=== PATIENT | male | born 1945 | race Caucasian/White ===

== ENCOUNTER 2017-07-16 19:24 | Emergency (ER) | payer OTHER ==
[~2017-07-16] VITALS: Ht 185.4 cm; Wt 95.0 kg
[2017-07-16] MEDS ORDERED: XARELTO20 MG PO (20:36)
[2017-07-16 20:54] LABS: HEMATOCRIT 45.7 % (38.0-50.0); MCH 30.6 PG (29.0-34.0); MCHC 33.9 G/DL (30.0-36.0); MCV 90.3 FL (86-99); MEAN PLAT.VOLUME 9.4 uM^3 (9.0-12.4); PLATELET COUNT 205 K/uL (156-360); RBC DIS.WIDTH-CV 13.1 % (11.8-14.6); RBC DIS.WIDTH-SD 42.8 % (39-53); RED BLOOD COUNT 5.06 M/uL (4.00-5.50); WHITE BLOOD COUNT 7.4 K/uL (4.1-10.2)
[2017-07-16 21:03] LABS: CHLORIDE 108 mEq/L (99-109); POTASSIUM 4.4 mEq/L (3.7-5.4); SODIUM 142 mEq/L (136-147)
[2017-07-16 21:04] LABS: GLUCOSE 90 mg/dL (70-99)
[2017-07-16 21:06] LABS: ANION GAP 8 MEQ/L (2-14)
[2017-07-16 21:08] LABS: GFR ESTIMATE (CALCULATED) > 59 mL/min/
[2017-07-16 21:09] LABS: UREA NITROGEN (BUN) 19 mg/dL (9-23)
[2017-07-16 22:41] VITALS: BP 141/87
== END 2017-07-16 22:42 | disposition home or self-care (01) ==
LOC: EXP 19:24 → EME 19:24 → EXP 22:42
PROC: 0CQ7XZZ Repair Tongue, External Approach (ICD-10-PCS; principal; 2017-07-16)
DX: K14.8 Other diseases of tongue (principal); Z79.01 Long term (current) use of anticoagulants; I48.2 Chronic atrial fibrillation
CPT/HCPCS: 80048; 85027; 99281; 99283

== ENCOUNTER → 2018-03-23 | Outpatient (CLI) | payer MEDICARE, OTHER ==
[~2018-03-23] MED LIST: XARELTO20 MG PO
== END | disposition home or self-care (01) ==
LOC: CDC 09:58
DX: Z01.810 Encounter for preprocedural cardiovascular examination (principal); H25.12 Age-related nuclear cataract, left eye; I48.91 Unspecified atrial fibrillation
CPT/HCPCS: 93000